=== PATIENT | male | born 1970 | race Hispanic/Latino ===

== ENCOUNTER 2017-02-23 23:26 | Emergency (ER) | payer OTHER ==
[~2017-02-23] VITALS: Ht 185.4 cm; Wt 89.5 kg
[2017-02-24] MEDS ORDERED: MOTRIN800 MG PO (01:00)
[2017-02-24 01:21] VITALS: BP 122/74
== END 2017-02-24 01:22 | disposition home or self-care (01) ==
LOC: EXP 23:26 → EME 23:26 → EXP 02-24 01:22
PROC: 0RSXXZZ Reposition Left Finger Phalangeal Joint, External Approach (ICD-10-PCS; principal; 2017-02-23)
DX: S63.283A Dislocation of proximal interphalangeal joint of left middle finger, initial encounter (principal); W10.9XXA Fall (on) (from) unspecified stairs and steps, initial encounter; Y92.009 Unspecified place in unspecified non-institutional (private) residence as the place of occurrence of the external cause
CPT/HCPCS: 73140; 99281; 99284; S0020